=== PATIENT | male | born 1965 ===

== ENCOUNTER 2023-04-08 05:30 | Day surgery (SDC) | payer OTHER ==
[2023-04-02 11:36] LABS: HEMATOCRIT 47.1 % (39.0-48.0); HEMOGLOBIN 15.3 g/dL (13-16.00); MEAN CELL VOLUME 88.8 fL (80.0-100.00); MEAN CORPUSCULAR HEMOGLOBIN 28.8 pg (27.00-32.0); MEAN CORPUSCULAR HGB CONC 32.4 g/dl (32.0-36.0); PLATELET COUNT 268 K/uL (150-450); RED BLOOD COUNT 5.31 M/uL (4.00-6.00); RED CELL DISTRIBUTION WIDTH 13.6 % (11.5-14.5)
[2023-04-02 11:45] LABS: URINE APPEARANCE Clear; URINE BILIRRUBIN Negative (NEGATIVE); URINE BLOOD Negative; URINE COLOR Yellow; URINE GLUCOSE Negative (NEGATIVE); URINE LEUKOCYTE Negative; URINE NITRATE Negative; URINE PROTEIN Negative (NEGATIVE); URINE UROBILINOGEN 0.2 E.U./dl
[2023-04-02 11:51] LABS: URINE RBC 2.1 uL (0.0-20.8)
[2023-04-02 11:55] LABS: INR 1.06; PROTHROMBIN TIME 11.1 SECONDS (9.0-11.5)
[2023-04-02 12:04] LABS: ALBUMIN 4.1 gm/dL (3.4-5.0); BILIRUBIN TOTAL 0.54 mg/dL (0.3-1.2); CALCIUM 9.5 mg/dL (8.5-10.1); CREATININE SERUM 0.87 mg/dL (0.70-1.30); GFR 90.77; GLOBULINA 3.6 G/DL (2.4-3.5); POTASSIUM 4.61 mEq/L (3.5-5.1); TOTAL PROTEIN 7.7 gm/dL (6.4-8.2)
[2023-04-02 12:08] LABS: URINE EPITHELIAL CELLS 0.3 uL (0.0-38.8); URINE WBC 1.6 uL (0.0-23.2)
[~2023-04-08] VITALS: Ht 165.1 cm; Wt 117.9 kg
[~2023-04-08 05:30] MED LIST: ADULT LOW DOSE81 M1 PO; CLONAZEPAN PO; GLUMETZA500 MG PO; HORIZANT600 MG PO; SYNTHROID75 MCG PO
== END 2023-04-08 13:45 | disposition home or self-care (01) ==
LOC: CIR.AMB 05:30
PROVIDERS: ATTEND Surgery
DX: K42.9 Umbilical hernia without obstruction or gangrene (principal); K42.0 Umbilical hernia with obstruction, without gangrene; Z88.0 Allergy status to penicillin; I10 Essential (primary) hypertension; Z20.822 Contact with and (suspected) exposure to COVID-19
CPT/HCPCS: 49593; C1781